=== PATIENT | female | born 1980 | race Asian ===

== ENCOUNTER 2016-08-26 00:18 | Emergency (ER) | payer BC ==
[~2016-08-26] VITALS: Ht 162.6 cm; Wt 87.3 kg
[2016-08-26 00:23] VITALS: TEMP 37; Ht 162.6 cm; Wt 87.3 kg
[2016-08-26] MEDS ORDERED: ALBUT/IPRATROP 3MG/0.5MG NEB 3 ML VIAL INH STA (00:24)
[2016-08-26] MEDS ORDERED: METHYLPREDNISOLONE 125 MG VIAL IV STA (00:24)
[2016-08-26] MEDS ORDERED: ALBUT/IPRATROP 3MG/0.5MG NEB 3 ML VIAL ONE (00:27)
[2016-08-26] MEDS ORDERED: ALBUT/IPRATROP 3MG/0.5MG NEB 3 ML VIAL INH ONE (00:30)
[2016-08-26 00:35] VITALS: O2SAT 98
--- NOTE | 2016-08-26 00:36 | EMERGENCY ROOM VISIT NOTE ---
History Report prepared by Laithibronen: Rosa Maria Grimes Under the Supervision of: Dr. Ashley Wilson M.D. First contact with patient: 00:20 Chief Complaint: RESPIRATORY PROBLEMS Stated Complaint: CAN'T BREATHE,ASTHMA Nursing Triage Summary: hx asthma. difficulty breathing. exposure to dogs. known trigger. History of Present Illness The patient is a 35 year old female who presents to the Emergency Room with complaints of persistent respiratory problems that began prior to arrival. The patient states that she is currently visiting her in-laws from [place]. She notes a history of asthma and has been staying in a house with dogs. The patient states that this evening she developed an increased work of breathing and states that she does not have a nebulizer with her. The patient notes that she has a history of being intubated in the past in a hospital in [place]. She states that last week she had a miscarriage. The patient denies any fever , chest pain, or recent illness. She denies any control use. Source of History: patient Onset: prior to arrival Position: other (global) Quality: other (respirtoary problems) Timing: other (persistent) Associated Symptoms: No chest pain, No fevers Review of Systems See HPI for pertinent positives & negatives. A total of 10 systems reviewed and were otherwise negative. Past Medical & Surgical Medical Problems: (1) Asthma Family History No pertinent family history stated. Social History Smoking Status: Never Smoker Marital Status: Housing Status: lives with significant other Occupation Status: employed Current/Historical Medications Scheduled Montelukast Sodium (Singulair), 10 MG PO DAILY Prednisone Tab (Prednisone), 10 MG PO DIRECTED Scheduled PRN [Proair], 2 PUFFS INH Q4H PRN for SOB/Wheezing Allergies Coded Allergies: No Known Allergies (Unverified , 08/26/16) Physical Exam Vital Signs Date Time Temp Pulse Resp B/P Pulse Ox O2 Delivery O2 Flow Rate FiO2 08/26/16 03:24 101 18 143/98 97 Room Air 08/26/16 02:10 108 20 138/90 99 Nasal Cannula 3.0 08/26/16 01:31 114 20 128/103 100 Nebulizer 08/26/16 01:01 105 22 99 Nasal Cannula 2.0 08/26/16 00:56 112 24 139/104 100 Nebulizer 08/26/16 00:35 121 08/26/16 00:35 98 Nasal Cannula 3.0 08/26/16 00:25 96 Room Air 08/26/16 00:23 37.0 134 24 140/116 98 Nasal Cannula 3.0 Physical Exam Vital signs reviewed. General: Well-appearing female, in significant distress. Tearful and anxious HEENT: No scleral icterus, PERRLA, neck supple. Atraumatic. Cardiovascular:Tachycardic rate, regular rhythm, no extra sounds. Pulmonary: Diffuse wheezing bilaterally, diminished breath sounds, on nasal cannula oxygen. Abdomen: Soft, nontender, nondistended, positive bowel sounds. Musculoskeletal: Atraumatic, no peripheral edema. Neurologic: Patient awake alert and oriented x 3 Skin: Warm, dry, no rash Medical Decision & Procedures ER Provider Diagnostic Interpretation: 1 view chest x-ray: negative for focal consolidation, no evidence of failure, normal mediastinal silhouette Laboratory Results 08/26/16 00:30 Red Blood Count 4.47, Mean Corpuscular Volume 90.8, Mean Corpuscular Hemoglobin 31.5, Mean Corpuscular Hemoglobin Concent 34.7, Mean Platelet Volume 9.1, Neutrophils (%) (Auto) 55.5, Lymphocytes (%) (Auto) 37.5, Monocytes (%) (Auto) 5.2, Eosinophils (%) (Auto) 1.4, Basophils (%) (Auto) 0.2, Neutrophils # (Auto) 7.36, Lymphocytes # (Auto) 4.98, Monocytes # (Auto) 0.69, Eosinophils # (Auto) 0.19, Basophils # (Auto) 0.03 08/26/16 00:30 Test 08/26/16 00:30 08/26/16 00:33 White Blood Count 13.28 K/uL (4.8-10.8) Red Blood Count 4.47 M/uL (4.2-5.4) Hemoglobin 14.1 g/dL (12.0-16.0) Hematocrit 40.6 % (37-47) Mean Corpuscular Volume 90.8 fL (80-100) Mean Corpuscular Hemoglobin 31.5 pg (25-34) Mean Corpuscular Hemoglobin Concent 34.7 g/dl (32-36) Platelet Count 417 K/uL (130-400) Mean Platelet Volume 9.1 fL (7.4-10.4) Neutrophils (%) (Auto) 55.5 % Lymphocytes (%) (Auto) 37.5 % Monocytes (%) (Auto) 5.2 % Eosinophils (%) (Auto) 1.4 % Basophils (%) (Auto) 0.2 % Neutrophils # (Auto) 7.36 K/uL (1.4-6.5) Lymphocytes # (Auto) 4.98 K/uL (1.2-3.4) Monocytes # (Auto) 0.69 K/uL (0.11-0.59) Eosinophils # (Auto) 0.19 K/uL (0-0.5) Basophils # (Auto) 0.03 K/uL (0-0.2) RDW Standard Deviation 42.8 fL (36.4-46.3) RDW Coefficient of Variation 12.8 % (11.5-14.5) Immature Granulocyte % (Auto) 0.2 % Immature Granulocyte # (Auto) 0.03 K/uL (0.00-0.02) Anion Gap 6.0 mmol/L (3-11) Est Creatinine Clear Calc Drug Dose 87.4 ml/min Estimated GFR () 88.3 Estimated GFR (Non- 76.2 BUN/Creatinine Ratio 15.1 (10-20) Calcium Level 9.2 mg/dl (8.5-10.1) Total Bilirubin 0.2 mg/dl (0.2-1) Direct Bilirubin < 0.1 mg/dl (0-0.2) Aspartate Amino Transf (AST/SGOT) 8 U/L (15-37) Alanine Aminotransferase (ALT/SGPT) 17 U/L (12-78) Alkaline Phosphatase 71 U/L (45-117) Total Protein 7.9 gm/dl (6.4-8.2) Albumin 4.4 gm/dl (3.4-5.0) Bedside D-Dimer 137 ng/mlFEU (0-450) Laboratory results per my review. Medications Administered Medications (Trade) Dose Ordered Sig/Guille Route Start Time Stop Time Status Last Admin Dose Admin Albuterol/ Ipratropium (Duoneb) 3 ml STK-MED ONCE .ROUTE 08/26/16 00:27 08/26/16 00:28 DC 08/26/16 00:27 3 ML Albuterol/ Ipratropium (Duoneb) 3 ml NOW STAT INH 08/26/16 00:24 08/26/16 00:26 DC 08/26/16 00:32 3 ML Albuterol/ Ipratropium (Duoneb) 12 ml ONE ONCE INH 08/26/16 00:30 08/26/16 00:31 DC 08/26/16 01:00 12 ML Methylprednisolone Sodium Succinate (Solu-Medrol IV) 125 mg NOW STAT IV 08/26/16 00:24 08/26/16 00:26 DC 08/26/16 00:32 125 MG Diphenhydramine HCl (Benadryl Inj) 50 mg NOW STAT IV 08/26/16 02:31 08/26/16 02:32 DC 08/26/16 02:43 50 MG ECG Indication: SOB/dyspnea Rate (beats per minute): 108 Rhythm: sinus tachycardia Findings: T-wave inversion (Inferior), no ectopy, other (T wave flattening in the anteriorlaterally) ED Course 0020: Past medical records reviewed. The patient was evaluated in room B6. A complete history and physical examination was performed. 0024: Ordered Solu-Medrol IV 125 mg IV, Duoneb 3 ml INH. 0030: Ordered Duoneb 12 ml INH. 0231: I reevaluated the patient and she is not feeling better. Ordered Benadryl inj 50 mg IV. 0300: I reevaluated the patient and she is resting comfortably. I discussed the exam findings with her and I discussed the treatment plan. She verbalized complete understanding and agreement. She is ready to go home. Medical Decision Differential diagnosis: Etiologies such as infections, reactive airway disease, pneumonia, pneumothorax , COPD, CHF, cardiac ischemia, pulmonary embolism, musculoskeletal, gastrointestinal, as well as others were entertained. This patient was evaluated and appeared to be in significant discomfort. Patient had notable increased work of breathing and wheezing bilaterally. She was given a DuoNeb treatment and IV access was obtained. The patient was then given an hour-long treatment. Chest x-ray was performed and is negative to my interpretation. EKG reveals sinus tachycardia with T-wave inversions. Laboratory work reveals negative cardiac enzymes, negative d-dimer. Patient did receive IV Solu-Medrol. She stated that she feels she may be allergic to family dogs she is visiting her in-laws. She was given IV Benadryl. The patient was reevaluated and was feeling improved. She does have an albuterol inhaler. Patient staying in a hotel. She was placed on a prednisone taper and asked to use her inhaler every 4 hours as needed. She'll follow-up with her physician upon return home to [place] and will return to the ER for worsening of symptoms or any medical concerns. Impression Primary Impression: Asthma exacerbation Scribe Attestation The scribe's documentation has been prepared under my direction and personally reviewed by me in its entirety. I confirm that the note above accurately reflects all work, treatment, procedures, and medical decision making performed by me. Departure Information Dispostion Home / Self-Care Prescriptions Prednisone Tab (PREDNISONE) 10 Mg Tab 10 MG PO DIRECTED, #31 TAB 40 mg for 4 days, 30 mg for 3 days, 20 mg for 2 days, 10 mg for 2 days. Prov: Ashley Wilson M.D. 08/26/16 Referrals No Doctor, Assigned (PCP) Forms HOME CARE DOCUMENTATION FORM, IMPORTANT VISIT INFORMATION, WORK / SCHOOL INSTRUCTIONS Patient Instructions My [facility] Additional Instructions Diagnosis: Acute asthma exacerbation Albuterol 2-4 puffs every 4 hours as needed for cough or wheezing. Prednisone 40 mg for 4 days, 30 mg for 3 days, 20 mg for 2 days, 10 mg for 2 days. Continue other medications as prescribed. Follow-up with your research and development technician upon return home. Return to the ER for worsening of symptoms or any medical concerns.
[2016-08-26 00:40] LABS: BASO % 0.2 %; BASO ABS # 0.03 K/uL (0-0.2); COMPLETE YES; EOS % 1.4 %; HEMATOCRIT 40.6 % (37-47); IG% 0.2 %; LYMPH % 37.5 %; LYMPH ABS # 4.98 K/uL (1.2-3.4); MEAN CELL VOLUME 90.8 fL (80-100); MEAN CORPUSCULAR HEMOGLOBIN 31.5 pg (25-34); MEAN CORPUSCULAR HGB CONC 34.7 g/dl (32-36); MEAN PLATELET VOLUME 9.1 fL (7.4-10.4); MONO % 5.2 %; NEUT % 55.5 %; PLATELET COUNT 417 K/uL (130-400); RED BLOOD COUNT 4.47 M/uL (4.2-5.4); WHITE BLOOD COUNT 13.28 K/uL (4.8-10.8)
[2016-08-26] MEDS ORDERED: PROAIR INH (00:52)
[2016-08-26] MEDS ORDERED: MONT1TAB3 PO (00:53)
[2016-08-26 00:56] LABS: ALT/SGPT 17 U/L (12-78); AST/SGOT 8 U/L (15-37); BLOOD UREA NITROGEN 15 mg/dl (7-18); BUN/CREATININE RATIO 15.1 (10-20); CALCIUM 9.2 mg/dl (8.5-10.1); CARBON DIOXIDE 29 mmol/L (21-32); CHLORIDE 108 mmol/L (98-107); CREATININE 0.97 mg/dl (0.60-1.20); GLUCOSE 111 mg/dl (70-99); POTASSIUM 3.5 mmol/L (3.5-5.1); SODIUM 143 mmol/L (136-145)
[2016-08-26 00:59] LABS: ALKALINE PHOSPHATASE 71 U/L (45-117)
[2016-08-26 01:01] VITALS: PULSE 105; O2SAT 99
[2016-08-26] MEDS ORDERED: DiphenhydrAMINE HCL 50 MG/ML VIAL IV STA (02:31)
[2016-08-26] MEDS ORDERED: PRED10TA PO (03:08)
[2016-08-26 03:24] VITALS: BP 143/98; PULSE 101; O2SAT 97
--- NOTE | 2016-08-26 07:54 | DIAGNOSTIC IMAGING REPORT ---
CHEST ONE VIEW PORTABLE HISTORY: Respiratory distress. Difficulty breathing. COMPARISON: None. FINDINGS: The lungs are clear. Cardiac silhouette is normal in size. No pleural effusions. No pneumothorax. IMPRESSION: No acute process. Electronically signed by: Juventino Lozano M.D. 08/26/2016 7:52 AM Dictated Date/Time: 08/26/2016 7:51 AM
== END 2016-08-26 03:38 | disposition home or self-care (01) ==
LOC: C.EDB 00:20
DX: J45.901 Unspecified asthma with (acute) exacerbation (principal)